=== PATIENT | male | born 1995 | race American Indian/Alaskan Native ===

== ENCOUNTER 2017-05-01 13:54 | Emergency (ER) | payer OTHER, BC ==
[2017-05-01 14:05] VITALS: BP 119/76; PULSE 82; TEMP 98.2; BMI 27.3
[2017-05-01] MEDS ORDERED: IBUPROFEN 600 MG TABLET (FP) PO ONE ×2 (14:33→14:35)
[2017-05-01] MEDS ORDERED: DIPHTH,PERTUSS(ACELL),TET 0.5 ML DISP.SYRIN IM ONE (14:33)
--- NOTE | 2017-05-01 14:38 | PDOC ---
History of Present Illness - General Chief Complaint: Injury Stated Complaint: BACK INJURY,FALL Time Seen by Provider: 05/01/17 14:24 History Source: Patient Exam Limitations: No Limitations - History of Present Illness Initial Comments: 05/01/17 14:33 21 yr male fell and hit his back on a desk at work . no head trauma no LOC. Pt has no medical history no allergies. last tetanus unk. 05/01/17 22:06 Occurred: reports: just prior to arrival Severity: reports: mild Pain Location: reports: back Method of Injury: Yes: direct blow Associated Symptoms (Fall): denies symptoms Past History - Past Medical History Allergies/Adverse Reactions: Allergies Allergy/AdvReac Type Severity Reaction Status Date / Time No Known Allergies Allergy Verified 05/01/17 14:05 Home Medications: Ambulatory Orders NK [No Known Home Medication] 04/07/16 Other medical history: denies - Psycho/Social/Smoking Cessation Hx Suicidal Ideation: No Smoking History: Never smoked Have you smoked in the past 12 months: No Information on smoking cessation initiated: No Hx Alcohol Use: No Drug/Substance Use Hx: No Substance Use Type: None Trauma Specific PMHX - Complaint Specific PMHX Arthritis: No Back Injury: No Neck Injury: No Hx Sacro Iliac Joint Dysfunction: No Review of Systems - Review of Systems Able to Perform ROS?: Yes Is the patient limited Chinese proficient: No Constitutional: No: Symptoms Reported HEENTM: No: Symptoms Reported Respiratory: No: Symptoms reported Cardiac (ROS): No: Symptoms Reported ABD/GI: No: Symptoms Reported : No: Symptoms Reported Musculoskeletal: Yes: See HPI, Back Pain *Physical Exam - Vital Signs Last Vital Signs Temp Pulse Resp BP Pulse Ox 98.2 F 82 18 119/76 99 05/01/17 14:04 05/01/17 14:04 05/01/17 14:04 05/01/17 14:04 05/01/17 14:04 - Physical Exam General Appearance: Yes: Nourished, Appropriately Dressed HEENT: positive: EOMI, KEVIN, TMs Normal, Pharynx Normal Neck: positive: Supple. negative: Tender Respiratory/Chest: positive: Lungs Clear, Normal Breath Sounds. negative: Chest Tender Cardiovascular: positive: Regular Rhythm, Regular Rate Gastrointestinal/Abdominal: positive: Normal Bowel Sounds, Soft Musculoskeletal: positive: Normal Inspection, Other (neg bony tenderness, neg crepitus or step off, neg vetebral tenderness, neg cva tenderness). negative: CVA Tenderness, CVA Tenderness (R), Vertebral Tenderness Extremity: positive: Normal Capillary Refill, Normal Inspection, Normal Range of Motion Integumentary: positive: Normal Color, Ecchymosis (abrasion 3cm to mid back , large area of bruising to the thoracic area approximately 15cmx 20cm ), Bruising Neurologic: positive: Fully Oriented, Alert, Normal Mood/Affect, Normal Response , Motor Strength 5/5 Procedures - Laceration/Wound Repair Upper Back Wound's Depth, Shape: superficial (abrasion mid back ) Progress: 05/01/17 14:41 wound cleaned with saline, bacitracin placed non stick telfa gauze. 05/01/17 14:57 Progress Note - Progress Note Progress Note: pt given motrin xrays discussed with pt and all questions asked and answered Medical Decision Making - Medical Decision Making 05/01/17 22:05 cc: mechanical fall while standing up on desk fell and injured his back on the desk at work today no LOC pt denies pain states he was told to come be evaluated pt has no medical history abrasion with bruising noted to the middle of back neg CVA pain neg abd pain neg vetebral tenderness will get xrays as pt has large area of bruising, no SOB or chest pain *DC/Admit/Observation/Transfer Diagnosis at time of Disposition: Abrasion, Bruise - Discharge Dispostion Disposition: HOME Condition at time of disposition: Good - Referrals Referrals: Karlos Romero MD [Primary Care Provider] - - Patient Instructions Additional Instructions: ice every 2hrs for 20 minutes for the next 2 days while awake take motrin (over the counter advil, motrin, ibuprofen) 600-800mg every 6hrs for pain as needed keep clean and dry regular soap and water to wash apply bacitracin once a day and cover the abrasion while at work return if any worsening symptoms , short of breath, increase in pain, or any other concerns
[2017-05-01] MEDS ORDERED: BACITRACIN 15 GM TUBE TOPICAL OINTMENT ONE (14:55)
== END 2017-05-01 15:17 | disposition home or self-care (01) ==
LOC: JERFT 13:54
PROC: 3E0234Z Introduction of Serum, Toxoid and Vaccine into Muscle, Percutaneous Approach (ICD-10-PCS; principal; 2017-05-01)
DX: S20.419A Abrasion of unspecified back wall of thorax, initial encounter (principal); S30.0XXA Contusion of lower back and pelvis, initial encounter; W17.89XA Other fall from one level to another, initial encounter; Y93.89 Activity, other specified; Y92.9 Unspecified place or not applicable; Y99.0 Civilian activity done for income or pay
CPT/HCPCS: 71020-TC; 72070-TC; 90715; 99281-25

== ENCOUNTER 2017-07-27 22:24 | Emergency (ER) | payer BC, OTHER ==
[2017-07-27 22:30] VITALS: BP 124/74; PULSE 94; TEMP 98.9; BMI 26.6
[2017-07-27] MEDS ORDERED: SODIUM CHLORIDE 1,000 ML IV STA (23:30)
[2017-07-27] MEDS ORDERED: IBUPROFEN 600 MG TABLET (FP) PO ONE ×2 (23:30→23:59)
--- NOTE | 2017-07-27 23:39 | PDOC ---
History of Present Illness - General Chief Complaint: Cold Symptoms Stated Complaint: COLD SYMPTOMS Time Seen by Provider: 07/27/17 23:26 History Source: Patient Exam Limitations: No Limitations - History of Present Illness Initial Comments: 07/27/17 23:34 21 y.o. M with no pmh presenting with cold symptoms. Patient states he began feeling sick this morning with cough with sputum, fever, and headache. Patient denies any chills, chest pain, shortness of breath, N/V/D/C abdominal pain, dysuria, hematuria All: NKDA PCP: Dr. Romero Past History - Past Medical History Allergies/Adverse Reactions: Allergies Allergy/AdvReac Type Severity Reaction Status Date / Time No Known Allergies Allergy Verified 05/01/17 14:05 Home Medications: Ambulatory Orders NK [No Known Home Medication] 04/07/16 - Suicide/Smoking/Psychosocial Hx Smoking History: Never smoked Have you smoked in the past 12 months: No Information on smoking cessation initiated: No Hx Alcohol Use: No Drug/Substance Use Hx: No Substance Use Type: None Review of Systems - Review of Systems Able to Perform ROS?: Yes Comments:: 07/27/17 23:39 GENERAL/CONSTITUTIONAL: +fever No chills. No weakness. HEAD, EYES, EARS, NOSE AND THROAT: No change in vision. No ear pain or discharge. No sore throat. CARDIOVASCULAR: No chest pain or shortness of breath RESPIRATORY: +cough, wheezing, or hemoptysis. GASTROINTESTINAL: No nausea, vomiting, diarrhea or constipation. GENITOURINARY: No dysuria, frequency, or change in urination. MUSCULOSKELETAL: No joint or muscle swelling or pain. No neck or back pain. SKIN: No rash NEUROLOGIC: No headache, vertigo, loss of consciousness, or change in strength/ sensation. ENDOCRINE: No increased thirst. No abnormal weight change HEMATOLOGIC/LYMPHATIC: No anemia, easy bleeding, or history of blood clots. ALLERGIC/IMMUNOLOGIC: No hives or skin allergy. *Physical Exam - Vital Signs Last Vital Signs Temp Pulse Resp BP Pulse Ox 98.9 F 94 H 18 124/74 97 07/27/17 22:25 07/27/17 22:25 07/27/17 22:25 07/27/17 22:25 07/27/17 22:25 - Physical Exam Comments: 07/27/17 23:39 GENERAL: Awake, alert, and fully oriented, in no acute distress HEAD: No signs of trauma, normocephalic, atraumatic EYES: PERRLA, EOMI, sclera anicteric, conjunctiva clear ENT: Auricles normal inspection, hearing grossly normal, nares patent, oropharynx clear without exudates. Moist mucosa NECK: Normal ROM, supple, no lymphadenopathy, JVD, or masses LUNGS: No distress, speaks full sentences, clear to auscultation bilaterally HEART: Regular rate and rhythm, normal S1 and S2, no murmurs, rubs or gallops, peripheral pulses normal and equal bilaterally. ABDOMEN: Soft, nontender, normoactive bowel sounds. No guarding, no rebound. No masses EXTREMITIES: Normal inspection, Normal range of motion, no edema. No clubbing or cyanosis. NEUROLOGICAL: Cranial nerves II through XII grossly intact. Normal speech, normal gait, no focal sensorimotor deficits SKIN: Warm, Dry, normal turgor, no rashes or lesions noted. Medical Decision Making - Medical Decision Making 07/27/17 23:40 21 y.o. M with no pmh presenting with cold symptoms. Plan: CBC, CMP, sx control, Flu swab, IVF 07/27/17 23:51 Patient signed out to Dr. Zamudio
--- NOTE | 2017-07-27 23:55 | PDOC ---
*Physical Exam - Vital Signs Last Vital Signs Temp Pulse Resp BP Pulse Ox 98.9 F 94 H 18 124/74 97 07/27/17 22:25 07/27/17 22:25 07/27/17 22:25 07/27/17 22:25 07/27/17 22:25 - Physical Exam Comments: 07/28/17 00:27 coughing, sneezing General Appearance: Yes: Mild Distress HEENT: positive: Normal Voice, Nasal Congestion ED Treatment Course - LABORATORY CBC & Chemistry Diagram: 07/27/17 23:51 07/27/17 23:51 Progress Note - Progress Note Progress Note: Patient is a stable 21 year old male signed out to me by Gianluca Kirkland PMH Presenting with [id number] Labs, flu swab ordered Fluids/Motrin Reassess and DC with f/u if negative Medical Decision Making - Medical Decision Making 21 yo with flu-like symptoms 07/28/17 00:58 Flu-A(+) Rx Tamiflu DC home with precautions *DC/Admit/Observation/Transfer Diagnosis at time of Disposition: Influenza A - Discharge Dispostion Disposition: HOME Condition at time of disposition: Stable Admit: No - Prescriptions Prescriptions: Oseltamivir Phosphate [Tamiflu] 75 mg PO BID #10 capsule - Referrals Referrals: Karlos Romero MD [Primary Care Provider] - - Patient Instructions Printed Discharge Instructions: DI for Influenza -- Adult Additional Instructions: You tested positive for influenza A This is highly contagious You should avoid contact with infants, the elderly, and persons with a weakened immune system. You should follow up with your primary doctor in the next few days A prescription for Tamiflu has been sent to the [facility] Take one tablet twice a day until you have finished the medication Return to the emergency department if your symptoms get significantly worse or you develop any new or concerning symptoms. Print Language: FRENCH - Post Discharge Activity Forms/Work/School Notes: Back to Work
--- NOTE | 2017-07-28 00:16 | PDOC ---
Attending Attestation - Resident Resident Name: aKmlesh Hough - ED Attending Attestation I have performed the following: I have examined & evaluated the patient, The case was reviewed & discussed with the resident, I agree w/resident's findings & plan, Exceptions are as noted - HPI HPI: 07/28/17 00:10 21 yo male with no significant past medical history became ill today with sneezing,coughing,body aches,nasal congestion ,headache ,fever and chills - Physicial Exam PE: 07/28/17 00:18 wnwd 21 yo male p/w URI symptoms nares++rhinorrhea neck supple lungs cta b/l cvs tachycardia abd soft nontender extremities motor strength 5/5 neuro axox3,ambulating with ease,no focal neuro deficits - Medical Decision Making 07/28/17 00:22 pain meds,,hydration, influenza swab sent 07/28/17 00:47 pt positive for Influenza A,tamiflu eprescribed
[2017-07-28 00:23] LABS: BASOPHIL 0.5 % (0-2.0); EOSINOPHIL 0.9 % (0-4.5); MCH 27.2 pg (25.7-33.7); MCHC 33.1 g/dl (32.0-35.9); MEAN CELL VOLUME 82.4 fl (80-96); MEAN PLT VOLUME 8.2 fl (7.5-11.1); NEUTROPHILS 75.8 % (42.8-82.8); PLATELET COUNT 207 K/MM3 (134-434); RDW 14.6 % (11.9-15.9); WHITE BLOOD COUNT 5.3 K/mm3 (4.0-10.0)
[2017-07-28 00:45] LABS: ALBUMIN 4.1 g/dl (3.4-5.0); ANION GAP 9 (8-16); BILIRUBIN,TOTAL 0.4 mg/dL (0.2-1.0); CALCIUM 8.9 mg/dL (8.5-10.1); CO2 27 mmol/L (21-32); CREATININE 1.1 mg/dL (0.7-1.3); GLUCOSE,RANDOM 105 mg/dL (74-106); SGOT/AST 20 U/L (15-37); SGPT/ALT 27 U/L (12-78); TOT PROT 7.5 g/dl (6.4-8.2)
[2017-07-28 00:46] LABS: ALK PHOS 100 U/L (45-117)
== END 2017-07-28 01:05 | disposition home or self-care (01) ==
LOC: JER 22:24
PROC: 3E0337Z Introduction of Electrolytic and Water Balance Substance into Peripheral Vein, Percutaneous Approach (ICD-10-PCS; principal; 2017-07-27)
DX: J09.X2 Influenza due to identified novel influenza A virus with other respiratory manifestations (principal)
CPT/HCPCS: 36415; 80053; 85025; 87804; 99282-25

== ENCOUNTER 2017-08-08 20:01 | Emergency (ER) | payer BC ==
[2017-08-08 20:26] VITALS: BP 124/66; PULSE 92; TEMP 97.5; BMI 26.6
[2017-08-08] MEDS ORDERED: SODIUM CHLORIDE 1,000 ML IV STA (21:01)
[2017-08-08] MEDS ORDERED: ACETAMINOPHEN 1000 MG/100 ML VIAL (NON FORMULARY) IVPB ONE (21:01)
[2017-08-08] MEDS ORDERED: METOCLOPRAMIDE HCL INJECTION 10 MG/2 ML VIAL IVPUSH ONE (21:01)
[2017-08-08] MEDS ORDERED: METOCLOPRAMIDE HCL INJECTION 10 MG/2 ML VIAL ONE (21:11)
[2017-08-08] MEDS ORDERED: ACETAMINOPHEN INJECTION 100 ML IVPB ONE (21:11)
--- NOTE | 2017-08-08 21:37 | PDOC ---
History of Present Illness - General History Source: Patient Exam Limitations: No Limitations <Zhou Colindres - Last Filed: 08/08/17 23:47> - General History Source: Patient Exam Limitations: No Limitations - History of Present Illness Initial Comments: 08/08/17 21:57 The patient is a 22 year old male, with a significant past medical history of migraines, who presents to the emergency room complaining of frontal headache and nausea for approx. 3 hours. The patient reports he was playing football when he fell and hit his head. The patient reports he drove home after the game , however, his headache has been progressively worse rated 8/10 in severity. He reports feeling nauseous without vomiting and states he also feels fatigued. He denies loss of consciousness, blurry or double vision. He denies neck or back pain. He denies numbness, loss of sensation or tingling. He denies recent chest pain or shortness of breath. Allergies: NKA PCP: Dr. Karlos Romero <Jaswinder Moody - Last Filed: 08/09/17 00:40> - General Chief Complaint: Headache Stated Complaint: HEAD INJURY Time Seen by Provider: 08/08/17 20:34 Past History - Suicide/Smoking/Psychosocial Hx Smoking History: Never smoked Have you smoked in the past 12 months: No Hx Alcohol Use: No Drug/Substance Use Hx: No Substance Use Type: None <Zhou Colindres - Last Filed: 08/08/17 23:47> <Jaswinder Moody - Last Filed: 08/09/17 00:40> - Past Medical History Allergies/Adverse Reactions: Allergies Allergy/AdvReac Type Severity Reaction Status Date / Time No Known Allergies Allergy Verified 05/01/17 14:05 Home Medications: Ambulatory Orders Metoclopramide HCl [Reglan] 10 mg PO Q8H PRN #15 tablet 08/08/17 Naproxen [Naprosyn -] 500 mg PO BID PRN #14 tablet 08/08/17 Review of Systems - Review of Systems Comments:: 08/08/17 22:01 GENERAL/CONSTITUTIONAL: No fever or chills. HEAD, EYES, EARS, NOSE AND THROAT: No change in vision. No ear pain or discharge. No sore throat. CARDIOVASCULAR: No chest pain or shortness of breath. RESPIRATORY: No cough, wheezing, or hemoptysis. GASTROINTESTINAL: +Nausea. No vomiting, diarrhea or constipation. GENITOURINARY: No dysuria, frequency, or change in urination. MUSCULOSKELETAL: No joint or muscle swelling or pain. No neck or back pain. SKIN: No rash NEUROLOGIC: +Headache. No vertigo, loss of consciousness, or change in strength/ sensation. ENDOCRINE: No increased thirst. No abnormal weight change. HEMATOLOGIC/LYMPHATIC: No anemia, easy bleeding, or history of blood clots. ALLERGIC/IMMUNOLOGIC: No hives or skin allergy. <Jaswinder Moody - Last Filed: 08/09/17 00:40> *Physical Exam - Vital Signs Last Vital Signs Temp Pulse Resp BP Pulse Ox 97.5 F L 92 H 20 124/66 99 08/08/17 20:15 08/08/17 20:15 08/08/17 20:15 08/08/17 20:15 08/08/17 20:15 <Lanny Colindresel - Last Filed: 08/08/17 23:47> - Vital Signs Last Vital Signs Temp Pulse Resp BP Pulse Ox 97.5 F L 92 H 20 124/66 99 08/08/17 20:15 08/08/17 20:15 08/08/17 20:15 08/08/17 20:15 08/08/17 20:15 - Physical Exam Comments: 08/08/17 22:04 GENERAL: Awake, alert, and fully oriented, in no acute distress HEAD: No signs of trauma EYES: PERRLA, EOMI, sclera anicteric, conjunctiva clear ENT: Auricles normal inspection, hearing grossly normal, nares patent, oropharynx clear without exudates. Moist mucosa NECK: Normal ROM, supple, no lymphadenopathy, JVD, or masses LUNGS: Breath sounds equal, clear to auscultation bilaterally. No wheezes, and no crackles HEART: Regular rate and rhythm, normal S1 and S2, no murmurs, rubs or gallops ABDOMEN: Soft, nontender, normoactive bowel sounds. No guarding, no rebound. No masses EXTREMITIES: Normal range of motion, no edema. No clubbing or cyanosis. No cords, erythema, or tenderness NEUROLOGICAL: 5/5 strength in all extremities. Sensation intact throughout. No protonator drift. Cranial nerves II through XII intact. Normal speech, normal gait SKIN: Warm, Dry, normal turgor, no rashes or lesions noted. <Jaswinder Moody - Last Filed: 08/09/17 00:40> ED Treatment Course - RADIOLOGY Radiology Studies Ordered: Category Date Time Status HEAD CT WITHOUT CONTRAST [CT] Stat CT Scan 08/08/17 21:01 Ordered <Zhou Colindres - Last Filed: 08/08/17 23:47> - RADIOLOGY Radiograph Interpretation: 08/09/17 00:38 EXAM: CT brain without contrast HISTORY: Fall, hit head IMAGES: 137 No acute findings. No mass effect, hemorrhage, territorial infarct, hydrocephalus or fracture. Hugo Hernandez D.O. <Jaswinder Moody - Last Filed: 08/09/17 00:40> Medical Decision Making - Medical Decision Making 08/08/17 21:34 A portion of this note was written by my scribe, under my supervision. Vital Signs Temp Pulse Resp BP Pulse Ox 97.5 F L 92 H 20 124/66 99 08/08/17 20:15 08/08/17 20:15 08/08/17 20:15 08/08/17 20:15 08/08/17 20:15 22 year old male c/ pmh of migraines (not on daily medications) p/w headache after head injury. The patient was playing football and fell and hit back of head. Pt denies LOC or headaches at that time. ~45 minutes later, started to develop a headache, photophobia, and dizziness. Does not take anticoagulants. States that his typical migraines are complex and involves arm numbness, blurry vision and severe headaches. Pt is neurologically intact. Differential includes concussion vs. migraines Will however obtain a head CT to r/o intracranial hemorrhage. Will treat the headaches with medications and reassess. 08/08/17 23:42 CT head is negative. The patient reports feeling much better after tylenol and reglan. I suspect that the patient has had a concussion. I advised the patient that he should not participate in heavy activity until he feels much better and/or cleared by his doctor. The patient verbalizes understanding and will be drive home by his parents. I discussed the physical exam findings, ancillary test results and final diagnoses with the patient. I answered all of the patient's questions. The patient was satisfied with the care received and felt comfortable with the discharge plan and treatment plan. The patient will call their primary care physician within 24 hours to arrange follow-up and will return to the Emergency Department with any new, persistant or worsening symptoms. <Zhou Colindres - Last Filed: 08/08/17 23:47> *DC/Admit/Observation/Transfer <Zhou Colindres - Last Filed: 08/08/17 23:47> - Attestations Scribe Attestion: 08/08/17 22:06 Documentation prepared by Jaswinder Moody, acting as biomedical engineering supervisor for Zhou Colindres MD. <Jaswinder Moody - Last Filed: 08/09/17 00:40> Diagnosis at time of Disposition: Concussion Qualifiers: Encounter type: initial encounter Loss of consciousness presence/duration: without LOC Qualified Code(s): S06.0X0A - Concussion without loss of consciousness, initial encounter - Discharge Dispostion Disposition: HOME Condition at time of disposition: Stable - Prescriptions Prescriptions: Naproxen [Naprosyn -] 500 mg PO BID PRN #14 tablet PRN Reason: Headache Metoclopramide HCl [Reglan] 10 mg PO Q8H PRN #15 tablet PRN Reason: Nausea/Headache - Referrals Referrals: Karlos Romero MD [Primary Care Provider] - - Patient Instructions Printed Discharge Instructions: DI for Concussion Additional Instructions: Your head CT is negative. It may take days or weeks before your symptoms improve. Do not exert yourself until you feel better. Please make an appointment with your doctor.
[2017-08-08] MEDS ORDERED: KETOROLAC TROMETHAMINE 30 MG/1 ML VIAL IVPUSH ONE (23:33)
[2017-08-09] MEDS ORDERED: KETOROLAC TROMETHAMINE 30 MG/1 ML VIAL ONE (00:05)
== END 2017-08-09 00:20 | disposition home or self-care (01) ==
LOC: JER 20:01
PROC: 3E0337Z Introduction of Electrolytic and Water Balance Substance into Peripheral Vein, Percutaneous Approach (ICD-10-PCS; principal; 2017-08-08)
PROC: 3E033GC Introduction of Other Therapeutic Substance into Peripheral Vein, Percutaneous Approach (ICD-10-PCS; 2017-08-08)
PROC: 3E033NZ Introduction of Analgesics, Hypnotics, Sedatives into Peripheral Vein, Percutaneous Approach (ICD-10-PCS; 2017-08-08)
PROC: 3E0333Z Introduction of Anti-inflammatory into Peripheral Vein, Percutaneous Approach (ICD-10-PCS; 2017-08-08)
DX: S06.0X0A Concussion without loss of consciousness, initial encounter (principal); W18.39XA Other fall on same level, initial encounter; Y93.61 Activity, american tackle football; Y92.321 Football field as the place of occurrence of the external cause; Y99.8 Other external cause status
CPT/HCPCS: 70450-TC; 99281-25